=== PATIENT | male | born 2005 | race African-American/Black ===

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

== ENCOUNTER 2024-06-07 19:29 | Emergency (ER) | payer MEDICAID, OTHER ==
[~2024-06-07] VITALS: Ht 170.2 cm; Wt 63.5 kg
[~2024-06-07 19:29] MED LIST: LEVE500T9 PO
[2024-06-07 20:25] LABS: POTASSIUM 4.1 mmol/L (3.5-5.1)
[2024-06-07] MEDS ORDERED: LEVETIRACETAM (500MG) 500 MG/5 ML VIAL IV ONE (20:44)
[2024-06-07] MEDS: LEVETIRACETAM (500MG) 1,500 MG in IV NS 0.9% 85 ML IV SCH (21:00)
[2024-06-07 21:19] LABS: BASOPHILS % (AUTO) 0.8 % (0.0-2.0); EOSINOPHILS # (AUTO) 0.1 K/uL (0.0-0.7); EOSINOPHILS % (AUTO) 2.7 % (0.0-6.0); HEMATOCRIT 44 % (39-51); HEMOGLOBIN 14.8 g/dL (13.5-17.5); LYMPHOCYTES # (AUTO) 1.2 K/uL (0.8-4.8); LYMPHOCYTES % (AUTO) 37.4 % (20.0-44.0); MEAN CORPUSCULAR HEMOGLOBIN 32 PG (26.0-33.0); MEAN CORPUSCULAR HGB CONC 34 g/dl (31.0-36.0); MEAN CORPUSCULAR VOLUME 95 fL (80-96); MONOCYTES # (AUTO) 0.4 K/uL (0.1-1.30); MONOCYTES % (AUTO) 12.6 % (2.0-12.0); NEUTROPHILS # (AUTO) 1.5 K/uL (1.8-8.9); NEUTROPHILS % (AUTO) 46.5 % (43.0-81.0); PLATELET COUNT (AUTO) 234 K/uL (150-450); RED BLOOD CELL COUNT(AUTO) 4.58 MIL/uL (4.5-6.0); RED CELL DISTRIBUTION WIDTH 12.2 % (11.5-15.0); WHITE BLOOD COUNT (AUTO) 3.1 K/uL (4.3-11.0)
[2024-06-07 23:06] VITALS: BP 104/61; TEMP 98.4; O2SAT 97
== END 2024-06-07 23:07 | disposition home or self-care (01) ==
LOC: ER 19:46
DX: R56.9 Unspecified convulsions (principal); F84.0 Autistic disorder; Z88.0 Allergy status to penicillin
CPT/HCPCS: 99284; 96365; 93005; 85025; 80048; 36415; 82962; J7030 ×2; A4223; J1953 ×2